=== PATIENT | male | born 1980 | race Caucasian/White ===

== ENCOUNTER 2024-01-03 08:24 | Outpatient (CLI) | payer BC, SELFPAY | END 2024-01-03 08:25 | disposition home or self-care (01) | LOC: NFLDREF 01-04 14:11 | PROVIDERS: PCP Internal Medicine; Referring Provider Internal Medicine; Visit Provider Internal Medicine | DX: E34.9 Endocrine disorder, unspecified (principal) | CPT/HCPCS: 84403 ==

== ENCOUNTER 2024-04-18 09:05 | Outpatient (CLI) | payer BC, SELFPAY ==
--- OUTSIDE RECORDS SUMMARY | 2024-04-20 09:01 | XMS_ITS | Clinical Summary ---
Author Organization [facility] Address [address] [place] [id number] Care Team Providers Care Garment Examiner Name Role Phone No Ref-Primary, Physician Primary Care Provider Valentin Colón MD Unavailable [phone] Allergies No known active allergies Medications No known medications Social History Tobacco Use Types Packs/Day Years Used Date Smoking Tobacco: Former Smokeless Tobacco: Current Chew Adolescent Education Answer Date Record ed Getting School Help Needed Not on file 07/18 Sex and Gender Information Value Date Recorded Sex Assigned at Not on file Gender Identity Not on file Sexual Orientation Not on file Plan of Treatment Health Maintenance Due Date Last Done Comments ADVANCE CARE PLANNING 1978 ANNUAL REVIEW OF HM ORDERS 1978 CT COLONOGRAPHY 1978 FIT 1978 FLEX SIG 1978 GLUCOSE 1978 YEARLY PREVENTIVE VISIT 1978 sDNA (Cologuard) 1978 COLONOSCOPY 1988 COLORECTAL CANCER SCREENING 1988 HIV SCREENING 1993 HEPATITIS C SCREENING 1996 HEPATITIS B IMMUNIZATION (1 of 3 - 19+ 3-dose series) 1997 DTAP/TDAP/TD IMMUNIZATION (1 - Tdap) 2003 LIPID 2018 COVID-19 Vaccine (2022-2 4 season) 2023 PHQ-2 (once per calendar year) 2023 INFLUENZA VACCINE (Season Ended) 2024 HPV IMMUNIZATION Aged Out No longer e ligible based on patient's age to complete this topic IPV IMMUNIZATION Aged Out No longer e ligible based on patient's age to complete this topic MENINGITIS IMMUNIZATION Aged Out No l onger eligible based on patient's age to complete this topic Pneumococcal Vaccine: Pediat rics (0 to 5 Years) and At-Risk Patients (6 to 64 Years) Aged Out No longer eligi ble based on patient's age to complete this topic RSV MONOCLONAL ANTIBODY Aged Out No l onger eligible based on patient's age to complete this topic Care Teams Garment Examiner Relationship Specialty Start Date End Date No Ref-Primary, Physician PCP - General 03/11/23 Valentin Colón MD [address] [place] [id number] Assigned Heart and Vascular Provider 03/20/23
--- OUTSIDE RECORDS SUMMARY | 2024-04-20 09:01 | XMS_ITS | Referral Summary ---
Author Organization [facility] Address [address] [place] [address]. [place] [address] Care Team Providers Care Supervisor Engine Repair Name Role Phone No Ref-Primary, Physician Primary Care Provider Valentin Colón MD Unavailable Allergies No known active allergies Medications No [...] Orientation Not on file Plan of Treatment Not on file Care Teams Supervisor Engine Repair Relationship Specialty Start Date End Date No Ref-Primary, Physician PCP - General 03/11/23 Valentin Colón MD [address] [facility] [address] [place] [id number] Assigned Heart and Vascular Provider 03/20/23
--- OUTSIDE RECORDS SUMMARY | 2024-04-20 09:02 | XMS_ITS | Data Portability ---
Author Organization [facility], [facility] Address [address] [place] [address] Care Team Providers Care Craps Dealer Name Role Phone DWYER JANINE Referring Provider Assessment Encounter Date Assessment Date Assessment LastModified by Organization Details LastModified Time 11/19/2020 11/19/2020 40 Y/O MALE, SEEN FOR RT SCROTAL PAIN. INGUINAL SURGERY AT AGE 11, DETAILS NOT KNOWN. RT. TESTISCLE ,SMALLER, HIGH RIDING. SCROTAL U/S RESULTS PENDING. EXAM OTHERWISE NORMAL. ALSO AT TIMES ERECTILE DYSFUNCTION. TESTO LEVELS PENDING. REVIEWED RECORDS, SCROTAL U/S PLAN TESTO LEVELS PENDING. REASSURED. USE LOOSE CLOTHING, ADVIL. RTC IF ANY CHANGES. Not available 11/19/2020 10:24:50 Plan of Treatment Reminders Order Date Submit Date Provider Last Modified By Organization Details Last Modified Time Details Appointments None record ed. Lab None record ed. Referral None record ed. Procedures None record ed. Surgeries None record ed. Imaging None record ed. Medication Orders None record ed. Patient TargetsNo targets recorded. Patient InstructionsNo instructions recorded. Reason for Referral None Reported. Medical Equipment None Reported. Allergies No known drug allergies Medications Not known to be on any medication Vitals Date Recorded Body height Body mass index (BMI) Body weight Provider Name and Address Organization Details Last Updated DateTime 11/19/2020 177.8 cm 25.1 kg/m2 10321.66 g Jose Rubio MD [address] [place] [address],[address], [address], [facility] 11/19/2020 10:00:49 Social History Question Answer Notes LastModified by Organizat ion Details LastModified Time Tobacco Smoking Status Former Smoker Jose Rubio MD [address] [place] [address],[address], [place], [address], [facility] 11/19/2020 10:01:11 What Was The Date Of Your Most Recent Tobacco Screening? 11/19/2020 Information not available 11/19/2020 Sex: Unknown Functional Status None recorded. Mental Status None recorded. Family History Nothing Reported. Medical History Condition Response Other N High Blood Pressure N Kidney Stones N Lung Disease N Depression N GERD/Acid Reflux N Sexually Transmitted Infection N Cancer N High Cholesterol N Diabetes N Bleeding Disorder N Heart Disease N Past Encounters Encounter ID Performer Location Encounter Start Date Encounter Closed Date Diagnosis/Indication Diagnosis SNOMED-CT Code [id number] Jose Rubio MD [facility] [address] [place] [address] 11/19/2020 09:54:23 11/20/2020 10:54:23 Pain in testicle [id number] Retractile testis [id number] 06 Health Concerns Section Related Observation LastModified by Organization Detai ls LastModified Time None Recorded Concern Status LastModified by Organization Details LastModified Time None Recorded Advance Directives Directive None Recorded Payers None recorded. Notes Date Note Type Note Provider Name and Address Organization Details Recorded Time 11/19/2020 text/html HPI Notes: 40 YE AR OLD MALE HERE FOR RT TESTICULAR PAIN, partial undescended PER PT. PAIN/descomfort. HAS BEEN GOING ON FOR ABOUT A YEAR. RT INGUINAL SURGERY /HERNIA REPAIR AT AGE 11. RT TESTICLE SMALLER. Jose Rubio MD [address] [facility],[address], [place], [address], [facility] 11/19/2020 10:25:31
== END 2024-04-18 09:06 | disposition home or self-care (01) ==
LOC: NFLDREF 04-20 09:00
PROVIDERS: PCP Internal Medicine; Referring Provider Internal Medicine; Visit Provider Family Medicine
DX: E34.9 Endocrine disorder, unspecified (principal)
CPT/HCPCS: 84403